=== PATIENT | female | born 2000 | race Two or more races ===

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

== ENCOUNTER → 2022-08-04 13:03 | Outpatient (BNVA) | payer MEDICAID, SELFPAY | PROVIDERS: PCP Pediatrics; Visit Provider Advanced Practice Midwife | DX: Z34.90 Encounter for supervision of normal pregnancy, unspecified, unspecified trimester (principal) | CPT/HCPCS: 81025; 99202 ==

== ENCOUNTER 2022-08-17 12:26 | Outpatient (REF) | payer MEDICAID, SELFPAY ==
--- NOTE | ~2022-08-17 | US_ITS ---
EXAMINATION: US OBSTETRICAL ULTRASOUND CLINICAL INFORMATION: Encounter for normal COMPARISON: None available. LMP: 06/23/2022. Gestational age by maternal dates is 7 weeks 6 days. Estimated date of delivery by maternal dates is 03/30/2023. TECHNIQUE: Both transabdominal and endovaginal scanning was performed FINDINGS: There is a single intrauterine gestational sac with visible yolk sac, embryo/fetus, and cardiac activity. There is no significant subchorionic hemorrhage or hematoma. HR: 135 beats per minute. CRL (crown rump length): 0.7 cm (6 weeks 4 days +/- 4 days). ALTHEA (estimated date of delivery): 04/08/2023 +/- 4 days. MATERNAL ADNEXA: The right maternal ovary measures 2.7 x 1.7 x 1.9 cm. The left maternal ovary measures 2.5 x 1.7 x 2.3 cm. There is no significant maternal adnexal mass. No maternal pelvic ascites. US/US OB pelvic and transvaginal IMPRESSION: 1. Single intrauterine gestation with ultrasound gestational age of 6 weeks 4 days +/- 4 days. 2. Estimated date of delivery is 04/08/2023 +/- 4 days. 3. No maternal adnexal mass or pelvic ascites.
== END 2022-08-17 12:27 | disposition home or self-care (01) ==
LOC: HO.US 12:26
PROVIDERS: PCP Pediatrics; Visit Provider Advanced Practice Midwife
DX: Z34.91 Encounter for supervision of normal pregnancy, unspecified, first trimester (principal); Z3A.01 Less than 8 weeks gestation of pregnancy
CPT/HCPCS: 76801; 76817

== ENCOUNTER 2022-08-18 16:54 | Emergency (ER) | payer MEDICAID, SELFPAY ==
--- NOTE | ~2022-08-18 | US_ITS ---
EXAMINATION: US OBSTETRICAL ULTRASOUND CLINICAL INFORMATION: Vaginal bleeding. COMPARISON: 08/17/2022. LMP: 06/23/2022. Gestational age by maternal dates is 8 weeks. Estimated date of delivery by maternal dates is 03/30/2023. TECHNIQUE: Ultrasound of the maternal pelvis is performed using transabdominal transducer. M-mode Doppler is also performed. FINDINGS: There is a single intrauterine gestational sac with visible yolk sac, embryo/fetus, and cardiac activity. There is no significant subchorionic hemorrhage or hematoma. HR: 101 beats per minute. CRL (crown rump length): 0.64 cm (6 weeks and 4 days +/- 4 days). ALTHEA (estimated date of delivery): 04/09/2023 +/- 4 days. MATERNAL ADNEXA: The right maternal ovary measures 2 x 1.6 x 1.4 cm. The left maternal ovary measures 1.9 x 2.4 x 1.7 cm. There is no significant maternal adnexal mass. No maternal pelvic ascites. US/US OB <= 14 weeks fetus IMPRESSION: 1. Single intrauterine gestation with ultrasound gestational age of 6 weeks and 4 days +/- 4 days. There is a discrepancy between the calculated gestational age by LMP and ultrasound of approximately 1 week, recommend correlation with certainty of the LMP. 2. The heart rate is within the lower limits of normal, possibly due to early gestation. Recommend close attention on follow-up. 3. No maternal adnexal mass or pelvic ascites.
[2022-08-18 17:54] VITALS: BP 114/84; PULSE 73; RESP 16; TEMP 36.2; O2SAT 100; BMI 26.5
--- NOTE | 2022-08-18 17:54 | ED_ITS ---
HPI - Female Genitourinary General Chief complaint: Vaginal Bleeding Stated complaint: , spotting Time Seen by Provider: 08/18/22 19:57 Source: patient and family Mode of arrival: ambulatory Limitations: no limitations History of Present Illness HPI Narrative: 21-year-old female about 7 weeks presented today with lower abdominal cramps and vaginal bleed for the past 2 days, patient was evaluated by ultrasound yesterday showed 1 viable IUP. Related Data Previous Rx's Medication Instructions Recorded vitamin with calcium 1 tab PO DAILY #90 tabs 08/04/22 no.72-iron 27 mg-folic acid 1 mg tablet ( Vitamins Plus Low Iron) Allergies Allergy/AdvReac Type Severity Reaction Status Date / Time No Known Allergies Allergy Verified 08/18/22 17:54 Review of Systems Review of Systems: All other systems are reviewed and are negative Constitutional: Reports as per HPI and Reports no additional constitutional complaints Eyes: Reports as per HPI and Reports no additional eye complaints Reports system reviewed and no additional complaints, except as documented Cardiovascular: Reports as per HPI and Reports no additional cardiovascular complaints Respiratory: Reports as per HPI and Reports no additional respiratory complaints Gastrointestinal: Reports as per HPI and Reports no additional gastrointestinal complaints Genitourinary: Reports no additional female genitourinary complaints Musculoskeletal: Reports no additional musculoskeletal complaints Skin/Breast: Reports system reviewed and no additional complaints, except as docu Psychiatric: Reports no additional psychiatric complaints Endocrine: Reports no additional endocrine complaints Hematologic/Lymphatic: Reports no additional hematologic/lymphatic complaints Allergic/Immunologic: Reports no additional allergic/immunologic complaints Reports system reviewed and no additional complaints, except as documented and Reports Abnormal speech present [facility] Past Medical History Medical History No known health problems Social History Social History Alcohol intake: never Smoked in Last 30 Days: No Use of substances other than those prescribed or required for medical reasons: No Advance Directives: No Advance Directives Information Provided: No Physical Exam Vital Signs: Vital Signs: Last Vital Signs Temp 98.5 F 08/18/22 22:15 Pulse 80 08/18/22 22:15 Resp 18 08/18/22 22:15 BP 111/66 08/18/22 22:15 Pulse Ox 98 08/18/22 22:15 O2 Del Method Room Air 08/18/22 22:15 BMI result Body Mass Index 26.5 Vital signs have been reviewed as appeared to be correct. Blood pressure normal. Heart rate normal. Respiration rate normal. Temperature normal. Oxygen saturation normal. Appearance: Alert. Oriented X3. No acute distress. Head: Normal external exam. Normocephalic. Atraumatic. No Spencer signs noted. No raccoon eyes noted Eyes: PERRLA. EOMI. Conjunctiva and sclera normal. Eyelids normal. ENT: TM's Normal. Pharynx normal. Uvula midline. Moist mucous membranes. No trismus noted. No drooling noted. No muffled voice noted. Neck: Normal inspection. Neck supple. FROM. No adenopathy. Thyroid Normal. No meningeal signs. No neck mass noted. CVS: Normal heart rate and rhythm. Heart sound normal. No murmurs noted. Pulses normal throughout. Respiratory: No respiratory distress. Painless inspiration. Breath sounds normal. No wheezes/rales/rhonchi noted. Chest nontender. No accessory muscle usage noted or decreased air movement noted. Abdomen: Soft and nontender. Bowel sounds normal in all 4 quadrants. No distention noted. No organomegaly noted. No visible injury noted. Pelvic exam: Deferred for pelvic ultrasound. Back: No CVA tenderness. Full range of motion noted. Skin: Skin warm and dry. Normal skin color. Normal skin turgor. No rashes/lesions/lacerations noted. Extremities: No lower extremity edema. Extremities exhibit normal range of motion. Extremities nontender. Neuro: Oriented X 3. Cranial nerve exam: II-XII are grossly intact No motor deficit. No sensory deficit. Reflexes normal. Course Course Course Narrative: RME: 21yo F @ 7 weeks gestation c/o abdominal cramping and vaginal spotting. Had some spotting on Wednesday which resolved then recurred today. denies N/V Patient had outpatient US yesterday routinely Labs, UA ordered Full HPI, ROS and PE to be performed by primary ED provider. Reevaluation(s) Reevaluation #1: 21-year-old female patient is O Rh negative, patient eloped and I spoke with the patient on the phone [phone] and explained to the patient the importance of checking Rh antibody in her blood to determine whether she needs a RhoGAM, patient thinks she had a miscarriage in the bathroom after she left the ED patient was encouraged to come back for re-evaluation she preferred to follow-up with her credit review analyst tomorrow, The case was discussed with Dr. Maier Medical Decision Making Differential Diagnosis Differential Diagnoses: The differential diagnosis associated with the presentation includes (Miscarriage, threatened , ABO Rh mismatch, severe anemia.) Admission/Observation Consideration of admission/observation: Escalation of care including admission/observation considered Lab Data MDM Lab Attestation statement: I reviewed the patient's lab results. 08/18/22 18:06 08/18/22 18:06 Labs: Lab Results 08/18/22 08/18/22 08/18/22 Range/Units 18:06 18:06 18:06 WBC 17.2 H (4.8-10.8) X10*3/uL RBC 4.68 (4.20-5.50) X10*6/uL Hgb 12.4 (12.0-16.0) g/dl Hct 37.9 (37.0-47.0) % MCV 81.0 (80.0-98.0) fL MCH 26.5 L (27.0-33.0) pg MCHC 32.7 (31.0-35.0) g/dl RDW 12.7 (11.0-16.0) % Plt Count 299 (160-400) X10*3/uL MPV 9.5 (9.4-12.3) fL Immature Gran % (Auto) 0.3 (0.0-0.4) % Neut % (Auto) 80.4 H (45-73) % Lymph % (Auto) 11.7 L (20-40) % [place] % (Auto) 6.7 (2-11) % Eos % (Auto) 0.6 (0-4) % Baso % (Auto) 0.3 (0-2) % Lymph # (Auto) 2.0 (1.2-4.9) X10*3/uL [place] # (Auto) 1.2 (0.1-1.2) X10*3/uL Eos # (Auto) 0.1 (0.0-0.4) X10*3/uL Baso # (Auto) 0.1 (0.0-0.2) X10*3/uL Abs Immat Gran (auto) 0.05 H (0.00-0.03) X10*3/uL Absolute Neuts (auto) 13.8 H (2.0-8.3) x10*3/uL Absolute Nucleated RBC 0.000 (0.0-0.012) X10*3/uL Nucleated RBC % (auto) 0.0 (0.0-0.2) /100WBC Sodium 137 (135-145) mmol/L Potassium 3.4 (3.3-5.1) mmol/L Chloride 107 (96-108) mmol/L Carbon Dioxide 23 (22-29) mmol/L Anion Gap 10 L (12-20) BUN 10 (9-16) mg/dL Creatinine 0.57 (0.5-1.4) mg/dL Estim Creat Clear Calc 141.2 Estimated GFR > 60 Random Glucose 119 H (60-115) mg/dL Calcium 9.2 (8.4-10.2) mg/dL Total Bilirubin 0.3 (0.0-1.0) mg/dL Direct Bilirubin 0.1 (0.0-0.5) mg/dL AST 18 (5-31) U/L ALT 22 (0-31) U/L Alkaline Phosphatase 85 (39-117) U/L Total Protein 6.8 (6.5-8.0) g/dL Albumin 4.1 (3.5-5.0) g/dL Lipase 23 (8-78) U/L Beta HCG, Quant Cancelled Blood Type 08/18/22 08/18/22 Range/Units 18:06 21:43 WBC (4.8-10.8) X10*3/uL RBC (4.20-5.50) X10*6/uL Hgb (12.0-16.0) g/dl Hct (37.0-47.0) % MCV (80.0-98.0) fL MCH (27.0-33.0) pg MCHC (31.0-35.0) g/dl RDW (11.0-16.0) % Plt Count (160-400) X10*3/uL MPV (9.4-12.3) fL Immature Gran % (Auto) (0.0-0.4) % Neut % (Auto) (45-73) % Lymph % (Auto) (20-40) % [place] % (Auto) (2-11) % Eos % (Auto) (0-4) % Baso % (Auto) (0-2) % Lymph # (Auto) (1.2-4.9) X10*3/uL [place] # (Auto) (0.1-1.2) X10*3/uL Eos # (Auto) (0.0-0.4) X10*3/uL Baso # (Auto) (0.0-0.2) X10*3/uL Abs Immat Gran (auto) (0.00-0.03) X10*3/uL Absolute Neuts (auto) (2.0-8.3) x10*3/uL Absolute Nucleated RBC (0.0-0.012) X10*3/uL Nucleated RBC % (auto) (0.0-0.2) /100WBC Sodium (135-145) mmol/L Potassium (3.3-5.1) mmol/L Chloride (96-108) mmol/L Carbon Dioxide (22-29) mmol/L Anion Gap (12-20) BUN (9-16) mg/dL Creatinine (0.5-1.4) mg/dL Estim Creat Clear Calc Estimated GFR Random Glucose (60-115) mg/dL Calcium (8.4-10.2) mg/dL Total Bilirubin (0.0-1.0) mg/dL Direct Bilirubin (0.0-0.5) mg/dL AST (5-31) U/L ALT (0-31) U/L Alkaline Phosphatase (39-117) U/L Total Protein (6.5-8.0) g/dL Albumin (3.5-5.0) g/dL Lipase (8-78) U/L Beta HCG, Quant 7269 Blood Type O Negative Independent Interpretation I performed an independent interpretation of an: Ultrasound (Pelvic ultrasound:1. Single intrauterine gestation with ultrasound gestational age of 6 weeks and 4 days +/- 4 days. There is a discrepancy between the calculated gestational age by LMP and ultrasound of approximately 1 week, recommend correlation with certainty of the LMP. 2. The heart rate ) Radiology Impression Discussion of test interpretation with radiology: I have reviewed the radiologist's reading. Discharge Plan Discharge Clinical Impression: , threatened Patient Disposition: Home, Self-Care Instructions: Threatened Miscarriage (ED) Prescriptions: No Action Vitamin Plus Low Iron 27 mg iron- 1 mg tablet 1 tab PO DAILY Qty: 90 4RF Referrals: Braulio Acosta MD [Primary Care Provider] -
[2022-08-18 19:34] VITALS: BP 120/78; PULSE 94; RESP 18; O2SAT 97
[2022-08-18 19:54] VITALS: BP 115/68; PULSE 96; RESP 17; TEMP 37.4; O2SAT 99
--- NOTE | 2022-08-18 20:37 | PC.NURSE ---
tech drawing recollect labs
[2022-08-18 21:06] LABS: MANUAL DIFF FLAG NO
[2022-08-18 21:09] LABS: Basophils Absolute Auto 0.1 X10*3/uL (0.0-0.2); Basophils Percent Auto 0.3 % (0-2); Eosinophils Absolute Auto 0.1 X10*3/uL (0.0-0.4); Eosinophils Percent Auto 0.6 % (0-4); Hematocrit 37.9 % (37.0-47.0); Hemoglobin 12.4 g/dl (12.0-16.0); Imm Gran Abs Auto 0.05 X10*3/uL (0.00-0.03); Imm Gran Pct Auto 0.3 % (0.0-0.4); Lymphocytes Percent Auto 11.7 % (20-40); Mean Corpuscular HGB Conc 32.7 g/dl (31.0-35.0); Mean Corpuscular Hemoglobin 26.5 pg (27.0-33.0); Mean Platelet Volume 9.5 fL (9.4-12.3); Monocytes Absolute Auto 1.2 X10*3/uL (0.1-1.2); Monocytes Percent Auto 6.7 % (2-11); Neutrophils Absolute Auto 13.8 x10*3/uL (2.0-8.3); Neutrophils Percent Auto 80.4 % (45-73); Platelet Count 299 X10*3/uL (160-400); Red Blood Count 4.68 X10*6/uL (4.20-5.50); Red Cell Distribution Width 12.7 % (11.0-16.0); White Blood Count 17.2 X10*3/uL (4.8-10.8)
[2022-08-18 21:26] LABS: Alanine Aminotransferase 22 U/L (0-31); Albumin Level 4.1 g/dL (3.5-5.0); Alkaline Phosphatase 85 U/L (39-117); Anion Gap 10 (12-20); Aspartate Amino Transferase 18 U/L (5-31); Bilirubin Direct 0.1 mg/dL (0.0-0.5); Bilirubin Total 0.3 mg/dL (0.0-1.0); Blood Urea Nitrogen 10 mg/dL (9-16); Calcium 9.2 mg/dL (8.4-10.2); Carbon Dioxide 23 mmol/L (22-29); Chloride 107 mmol/L (96-108); Creatinine Clr Calc Pharmacy 141.2; Estimated Glomerular Filt Rate > 60; Glucose Random 119 mg/dL (60-115); Lipase 23 U/L (8-78); Potassium 3.4 mmol/L (3.3-5.1); Sodium 137 mmol/L (135-145); Total Protein 6.8 g/dL (6.5-8.0)
[2022-08-18 22:13] LABS: HCG Quantitative 7269 mIU/mL
[2022-08-18 22:15] VITALS: BP 111/66; PULSE 80; RESP 18; TEMP 36.9; O2SAT 98
--- NOTE | 2022-08-18 22:45 | PC.NURSE ---
pt labs resulted, US taken, pt awaiting results at this time. pt calm and cooperative with significant other at bedside, vss
--- NOTE | 2022-08-18 23:40 | PC.NURSE ---
pt is no longer in the room per Lulu from imaging.
--- NOTE | 2022-08-18 23:45 | PC.NURSE ---
pt left without radiology results or discharge. educated against leaving prior to results, pt and significant other verbalized understanding, refused to sign ama form. 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 self ambulated to exit.
== END 2022-08-18 23:51 | disposition left against medical advice (07) ==
PROVIDERS: Physician Assistant; Emergency Provider Emergency Medicine; PCP Pediatrics
DX: O20.0 Threatened abortion (principal); Z79.899 Other long term (current) drug therapy
CPT/HCPCS: 36415; 76801; 80048; 80076; 83690; 84702; 85025; 86900; 86901; 99284

== ENCOUNTER 2022-08-19 13:17 | Outpatient (REF) | payer MEDICAID, SELFPAY | END 2022-08-19 13:18 | disposition home or self-care (01) | LOC: HO.LAB 13:17 | PROVIDERS: PCP Pediatrics; Visit Provider Obstetrics & Gynecology | DX: O20.0 Threatened abortion (principal); O36.80X0 Pregnancy with inconclusive fetal viability, not applicable or unspecified; O26.891 Other specified pregnancy related conditions, first trimester; Z67.91 Unspecified blood type, Rh negative | CPT/HCPCS: 81025; 86850; 96372; 99212; J2790 ==

== ENCOUNTER 2022-08-31 11:13 | Outpatient (REF) | payer MEDICAID, SELFPAY ==
--- NOTE | ~2022-08-31 | US_ITS ---
EXAMINATION: US OBSTETRICAL ULTRASOUND CLINICAL INFORMATION: Threatened COMPARISON: Previous exam August 17 of 08/18/2022. LMP: Unknown. Gestational age by maternal dates is . Estimated date of delivery by maternal dates is . TECHNIQUE: Transabdominal first trimester OB ultrasound. Patient declined transvaginal exam. FINDINGS: Exam is limited due to body habitus. The uterus is anteverted and normal in size and shape. Intrauterine no longer seen. Endometrial thickness measures 0.5 cm. The cervix is normal. The left ovary is normal-appearing and measures 1.6 x 2.6 x 2.2 cm. The right ovary is not well visualized. The right ovary measures 2.6 x 2.8 x 3.2 cm. There is no fluid in the pelvis. US/US OB <= 14 weeks fetus IMPRESSION: Intrauterine no longer seen suggestive of spontaneous .
== END 2022-08-31 11:14 | disposition home or self-care (01) ==
LOC: HO.US 11:13
PROVIDERS: PCP Pediatrics; Visit Provider Advanced Practice Midwife
DX: O20.0 Threatened abortion (principal)
CPT/HCPCS: 76801

== ENCOUNTER → 2022-09-02 12:50 | Outpatient (BNVA) | payer MEDICAID, SELFPAY | PROVIDERS: PCP Pediatrics; Visit Provider Advanced Practice Midwife ==